=== PATIENT | female | born 2005 ===

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

== ENCOUNTER → 2024-01-01 | Outpatient (CLI) | payer OTHER | LOC: LAB 11:16 → LAB SHORT 11:16 | DX: N76.0 Acute vaginitis (principal) ==

== ENCOUNTER → 2024-05-26 | Outpatient (CLI) | payer OTHER | LOC: LAB 14:44 → LAB SHORT 14:44 | PROVIDERS: Advanced Practice Midwife | DX: Z01.419 Encounter for gynecological examination (general) (routine) without abnormal findings (principal) | CPT/HCPCS: G0123 ==